=== PATIENT | male | born 1960 | race Caucasian/White ===

== ENCOUNTER 2016-10-22 11:12 | Emergency (ER) | payer OTHER ==
--- NOTE | 2016-10-22 11:19 | ER Document Report ---
ED Medical Screen (RME) - General Stated Complaint: HEAD PAIN Notes: 55 yo male c/o headache, left sided. 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 found in office with brain bleed, flown to [facility] [place]. Doing well until today when he says pain is different, cant focus, slight slurring of speech. Pt on coumadin. TRAVEL OUTSIDE OF THE [place] IN LAST 30 DAYS: No - Related Data Allergies/Adverse Reactions: No Known Allergies Allergy (Verified 10/22/16 11:15) Past Medical History - Past Medical History Cardiac Medical History: Reports: Hx Hypertension Neurological Medical History: Denies: Hx Seizures Endocrine Medical History: Reports: Hx Diabetes Mellitus Type 2 GI Medical History: Reports: Hx Diverticulitis Musculoskeltal Medical History: Reports Hx Gout
[2016-10-22 11:44] LABS: ABSOLUTE BASOPHILS # (AUTO) 0.1 10^3/uL (0.0-0.2); ABSOLUTE EOSINOPHILS # (AUTO) 0.1 10^3/uL (0.0-0.6); ABSOLUTE MONOCYTES (AUTO) 0.6 10^3/uL (0.1-1.4); ABSOLUTE NEUT (AUTO) 4.4 10^3/uL (1.7-8.2); BASOPHILS % (AUTO) 0.8 % (0-2); EOSINOPHILS % (AUTO) 1.8 % (0-6); HEMATOCRIT 42.5 % (37.9-51.0); HEMOGLOBIN 14.5 g/dL (13.5-17.0); LYMPHOCYTES % (AUTO) 27.8 % (13-45); MEAN CORPUSCULAR HEMOGLOBIN 31.4 pg (27.0-33.4); MEAN CORPUSCULAR HGB CONC 34.3 g/dL (32.0-36.0); MEAN CORPUSCULAR VOLUME 92 fl (80-97); MONOCYTES % (AUTO) 7.9 % (3-13); RED BLOOD COUNT 4.63 10^6/uL (4.35-5.55); RED CELL DISTRIBUTION WIDTH 14.9 % (11.5-14.0); SEGMENTED NEUTROPHILS % (AUTO) 61.7 % (42-78); WHITE BLOOD COUNT 7.2 10^3/uL (4.0-10.5)
[2016-10-22 11:45] LABS: PROTHROMBIN TIME 25.2 SEC (11.4-15.4)
[2016-10-22 12:01] LABS: ALANINE AMINOTRANSFERASE 31 U/L (21-72); ALBUMIN 4.4 g/dL (3.5-5.0); ALKALINE PHOSPHATASE 69 U/L (38-126); ANION GAP 12 (5-19); ASPARTATE AMINO TRANSFERASE 21 U/L (17-59); BILIRUBIN,TOTAL 0.6 mg/dL (0.2-1.3); BLOOD UREA NITROGEN 15 mg/dL (7-20); CALCIUM 9.6 mg/dL (8.4-10.2); CARBON DIOXIDE 27 mmol/L (22-30); CHLORIDE 107 mmol/L (98-107); CREATININE RESULT 0.81 mg/dL (0.52-1.25); GLUCOSE 107 mg/dL (75-110); SODIUM 145.6 mmol/L (137-145); TOTAL PROTEIN 7.1 g/dL (6.3-8.2)
--- NOTE | 2016-10-22 14:34 | ER Document Report ---
ED General - General Chief Complaint: Headache Stated Complaint: HEAD PAIN Mode of Arrival: Ambulatory Information source: Patient, Relative - Notes: Patient presents to the emergency department with complaints of headache weird feeling in his head. Patient reports TBI in August. Patient was transferred to [place] and treated for a subdural and parenchymal hemorrhage. Patient reports this morning he woke up his vision seems a little bit blurry he has a headache and reports of left-sided his head feels numb, weird. TRAVEL OUTSIDE OF THE [place] IN LAST 30 DAYS: No - HPI Onset: This morning Onset/Duration: Sudden Quality of pain: Achy Severity: Mild Pain Level: 2 Associated symptoms: None Exacerbated by: Denies Relieved by: Denies Similar symptoms previously: No Recently seen / treated by doctor: No - Related Data Allergies/Adverse Reactions: No Known Allergies Allergy (Verified 10/22/16 11:15) Past Medical History - General Information source: Patient - Social History Smoking Status: Never Smoker Cigarette use (# per day): No Chew tobacco use (# tins/day): No Frequency of alcohol use: None Drug Abuse: None Lives with: Family Family History: Reviewed & Not Pertinent Patient has suicidal ideation: No Patient has homicidal ideation: No - Past Medical History Cardiac Medical History: Reports: Hx Hypercholesterolemia, Hx Hypertension Neurological Medical History: Denies: Hx Seizures Renal/ Medical History: Denies: Hx Peritoneal Dialysis GI Medical History: Reports: Hx Diverticulitis Musculoskeltal Medical History: Reports Hx Gout Surgical Hx: Negative Review of Systems - Review of Systems Notes: Review HPI for review of systems., All other systems negative Physical Exam - Vital signs Vitals: Temp Pulse Resp BP Pulse Ox 97.5 F 50 L 20 155/83 H 99 10/22/16 11:21 10/22/16 11:21 10/22/16 11:21 10/22/16 11:21 10/22/16 11:21 - Notes Notes: PHYSICAL EXAMINATION: GENERAL: Well-appearing and in no acute distress answers all questions appropriately HEAD: Atraumatic, normocephalic. EYES: Pupils equal round and reactive to light, extraocular movements intact, sclera anicteric, conjunctiva are normal. ENT: nares patent, oropharynx clear without exudates. Moist mucous membranes. speech clear NECK: Normal range of motion, supple without lymphadenopathy LUNGS: CTAB and equal. No wheezes rales or rhonchi. HEART: Regular rate and rhythm without murmurs ABDOMEN: Soft, no tenderness. No guarding, no rebound EXTREMITIES: Normal range of motion, no pitting edema. No cyanosis. NEUROLOGICAL: Cranial nerves grossly intact. Normal sensory/motor exams. 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 SKIN: Warm, Dry, normal turgor, no rashes or lesions noted Course - Re-evaluation Re-evalutation: 10/22/16 14:[address] Puente who advises consult with the hospitalist. Dr. Triana consulted. He requested neurology consult 10/22/16 14:45 Dr Sabillon consulted. He reports patient probably has a headache from his TBI, hemorrhage. He reports give patient something for the headache and have him follow-up with his primary care provider. Patient updated on plan of care, reports PEDRO 10/19 - Vital Signs Vital signs: Temp Pulse Resp BP Pulse Ox 97.8 F 48 L 20 143/88 H 99 10/22/16 16:06 10/22/16 16:06 10/22/16 11:21 10/22/16 16:06 10/22/16 16:06 - Laboratory Result Diagrams: 10/22/16 11:30 10/22/16 11:30 Laboratory results interpreted by me: 10/22/16 10/22/16 10/22/16 11:30 11:30 11:30 RDW 14.9 H PT 25.2 H Sodium 145.6 H - Diagnostic Test Radiology reviewed: Image reviewed, Reports reviewed - IMPRESSION: MILD DECREASED ATTENUATION IN THE LEFT FRONTAL LOBE AT THE SITE OF PREVIOUS BLEED. THIS MAY INDICATE EARLY ENCEPHALOMALACIA. NO ACUTE FINDINGS. Discharge - Discharge Clinical Impression: Headache Qualifiers: Headache type: post-traumatic Headache chronicity pattern: unspecified pattern Intractability: not intractable Qualified Code(s): G44.309 - Post-traumatic headache, unspecified, not intractable Condition: Stable Disposition: HOME, SELF-CARE Instructions: Headache ([facility]) Additional Instructions: *You have been evaluated for a headache *Monitor your symptoms as discussed- return for confusion, worsening PEDRO, weakness *Follow up with Colten Hubbard within 3 days for recheck *Return to ED for worsening condition, changes, needs *Return to ED if not better in 24 hours Forms: Elevated Blood Pressure Referrals: COLTEN HUBBARD, MAINTENANCE MECHANIC TECHNICIAN-C [Primary Care Provider] - Follow up as needed
[2016-10-22] MEDS ORDERED: ACETAMINOPHEN 325 MG TABLET PO ONE (14:49)
[2016-10-22 16:10] VITALS: BP 143/88
== END 2016-10-22 16:08 | disposition home or self-care (01) ==
LOC: ER 11:12
DX: G44.309 Post-traumatic headache, unspecified, not intractable (principal); R20.0 Anesthesia of skin; I10 Essential (primary) hypertension; Z87.820 Personal history of traumatic brain injury
CPT/HCPCS: 36415; 70450; 80053; 85025; 85610; 99284